=== PATIENT | male | born 1960 | race Caucasian/White ===

== ENCOUNTER 2019-04-07 01:07 | Emergency (ER) | payer OTHER ==
[2019-04-07] MEDS ORDERED: Diphtheria,Pertussis(Acell),Tetanus Vaccine 0.5 ML Syringe IM ONE (01:26)
[2019-04-07] MEDS ORDERED: Silver Sulfadiazine 1% Crm 50 GM Tube TOP ONE (01:31)
[2019-04-07] MEDS ORDERED: Ketorolac 60 MG/2 ML SDV IM ONE (01:33)
--- NOTE | 2019-04-07 01:33 | EDM.PDOC ---
ED HPI GENERAL MEDICAL PROBLEM - General Chief Complaint: Burn Stated Complaint: ADKINS ON BOTH KNEES Time Seen by Provider: 04/07/19 01:14 - History of Present Illness INITIAL COMMENTS - FREE TEXT/NARRATIVE: HISTORY AND PHYSICAL: History of present illness: The patient is a 59-year-old male who is unsure of his last tetanus shot and presents after he had exposure to bilateral knees by a heated beadlike substance while at work. The beads are solid and they only heat up they are not chemical and there are no chemicals involved and he contacted bilateral knees with these heated beads about an hour and a half ago. He is here for blisters and adkins to his knees. He denies any other exposure. He did have on equipment at the time and he has no bony pain. Review of systems: As per history of present illness and below otherwise all systems reviewed and negative. Past medical history: As per history of present illness and as reviewed below otherwise noncontributory. Surgical history: As per history of present illness and as reviewed below otherwise noncontributory. Social history: No reported history of drug or alcohol abuse. Family history: As per history of present illness and as reviewed below otherwise noncontributory. Physical exam: General: Well-developed well-nourished man who is nontoxic and who ambulated into the ED. Vital signs are noted by me HEENT: Atraumatic, normocephalic, negative for conjunctival pallor or scleral icterus, mucous membranes moist, throat clear, neck supple, nontender, trachea midline. Lungs: Clear to auscultation, breath sounds equal bilaterally, chest nontender. Heart: S1S2, regular rate and rhythm no overt murmurs Abdomen: Soft, nondistended, nontender. NABS Pelvis: Stable nontender. Genitourinary: Deferred. Rectal: Deferred. Extremities: Atraumatic and full range of motion of all extremities with the exception of the knees bilaterally where there is visible erythema. At the left knee there is a superficial burn and pinkish erythema noted along the anterior aspect of the knee which is not circumferential and there are no blisters appreciated. There is no bony tenderness and the patient can range of motion here. At the right knee there is similar pinkish erythema but there is more depth there are scattered blisters some of which have already been unroofed spontaneously and some which have some clear fluid. Again there is no bony tenderness defects or deformities and patient can range of motion at the knee. There is no extension of either of these superficial partial thickness adkins distally or proximally and it is localized in a circular fashion around the anterior knee without circumferential component. The legs are, negative for cords or calf pain. Neurovascular unremarkable. Neuro: Awake, alert, oriented. Cranial nerves II through XII unremarkable. Cerebellum unremarkable. Motor and sensory unremarkable throughout. Exam nonfocal. Diagnostics: [] Therapeutics: Tdap, irrigation of knees bilaterally, Silvadene and dressing, Toradol Procedure: Using an 18-gauge needle 3 of the larger blisters on the right knee were decompressed gently and clear fluid was obtained. There were no complications and the patient tolerated the procedure well. Impression: Superficial and superficial partial thickness adkins to knees bilaterally Definitive disposition and diagnosis as appropriate pending reevaluation and review of above. Bilateral Knee Pain Score (Numeric/FACES): 2 - Related Data Allergies Allergy/AdvReac Type Severity Reaction Status Date / Time No Known Allergies Allergy Verified 04/07/19 01:27 Home Meds: Home Meds . [No Known Home Meds] 04/07/19 [History] ED ROS GENERAL - Review of Systems Review Of Systems: ROS reveals no pertinent complaints other than HPI. ED EXAM, GENERAL - Physical Exam Exam: See Below (See dictation) Course - Vital Signs Last Recorded V/S: Last Vital Signs Temp 37.1 C 04/07/19 01:24 Pulse 81 04/07/19 01:24 Resp BP 147/63 H 04/07/19 01:24 Pulse Ox 98 04/07/19 01:24 - Orders/Labs/Meds Orders: Active Orders 24 hr Category Date Time Status Communication Order [RC] STAT Care 04/07/19 01:30 Ordered Vaccines to be Administered [RC] PER UNIT ROUTINE Care 04/07/19 01:27 Ordered Ketorolac [Toradol] Med 04/07/19 01:33 Once 60 mg IM ONETIME ONE Meds: Medications Discontinued Medications Generic Name Dose Route Start Last Admin Trade Name Freq PRN Reason Stop Dose Admin Diphtheria/Tetanus/Acell Pertussis 0.5 ml 04/07/19 01:26 Adacel IM 04/07/19 01:27 .ONCE ONE Silver Sulfadiazine 10 gm 04/07/19 01:31 Silvadene 1% Cream 50 Gm TOP 04/07/19 01:32 ONETIME ONE Departure - Departure Time of Disposition: 01:37 Disposition: Home, Self-Care 01 Condition: Good Clinical Impression: Burn of knee Qualifiers: Encounter type: initial encounter Laterality: unspecified laterality Burn degree: partial thickness (2nd degree) Qualified Code(s): T24.229A - Burn of second degree of unspecified knee, initial encounter - Discharge Information Referrals: Kwame Luong MD [Primary Care Provider] - Forms: ED Department Discharge Additional Instructions: The following information is given to patients seen in the emergency department who are being discharged to home. This information is to outline your options for follow-up care. We provide all patients seen in our emergency department with a follow-up referral. The need for follow-up, as well as the timing and circumstances, are variable depending upon the specifics of your emergency department visit. If you don't have a primary care physician on staff, we will provide you with a referral. We always advise you to contact your personal physician following an emergency department visit to inform them of the circumstance of the visit and for follow-up with them and/or the need for any referrals to a consulting specialist. The emergency department will also refer you to a specialist when appropriate. This referral assures that you have the opportunity for followup care with a specialist. All of these measure are taken in an effort to provide you with optimal care, which includes your followup. Under all circumstances we always encourage you to contact your private physician who remains a resource for coordinating your care. When calling for followup care, please make the office aware that this follow-up is from your recent emergency room visit. If for any reason you are refused follow-up, please contact the [facility] emergency department at and ask to speak to the emergency department charge nurse. [facility] Specialty clinic-Plastic Surgery and Hand Surgery Professional [address] [id number] Please cleanse the knees and wounds at least twice a day with mild soap and water pat dry and apply Silvadene in a very thin layer to the adkins. Use over- the-counter ibuprofen/Motrin 600-800 mg every 6-8 hours to assist with the pain as well as the inflammatory response of the burn. Please call and schedule a follow-up with our plastic surgeon for further care and evaluation as she helps us to manage adkins. Return to ER as needed and as discussed. - My Orders Last 24 Hours: My Active Orders 04/07/19 01:27 Vaccines to be Administered [RC] PER UNIT ROUTINE 04/07/19 01:30 Communication Order [RC] STAT 04/07/19 01:33 Ketorolac [Toradol] 60 mg IM ONETIME ONE - Assessment/Plan Last 24 Hours: My Active Orders 04/07/19 01:27 Vaccines to be Administered [RC] PER UNIT ROUTINE 04/07/19 01:30 Communication Order [RC] STAT 04/07/19 01:33 Ketorolac [Toradol] 60 mg IM ONETIME ONE
== END 2019-04-07 02:17 | disposition home or self-care (01) ==
LOC: MW.ED 01:07
DX: T24.221A Burn of second degree of right knee, initial encounter (principal); T24.222A Burn of second degree of left knee, initial encounter; X15.8XXA Contact with other hot household appliances, initial encounter; Y99.0 Civilian activity done for income or pay; Z23 Encounter for immunization
CPT/HCPCS: 16030; 90471; 90715; 96372; 99282; A9270; J1885; 99283